=== PATIENT | male | born 1995 | race Caucasian/White ===

== ENCOUNTER 2017-12-15 20:31 | Emergency (ER) | payer OTHER ==
[2017-12-15] MEDS ORDERED: LIDOCAINE 1% MPF 5 ML VIAL ONE (21:29)
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
== END 2017-12-15 23:34 | disposition home or self-care (01) ==
LOC: ER 20:31
PROC: 0CQ0XZZ Repair Upper Lip, External Approach (ICD-10-PCS; principal; 2017-12-15)
DX: S01.511A Laceration without foreign body of lip, initial encounter (principal); Y04.2XXA Assault by strike against or bumped into by another person, initial encounter; Y93.89 Activity, other specified; Y92.9 Unspecified place or not applicable; Z72.0 Tobacco use; Z88.2 Allergy status to sulfonamides; Z88.8 Allergy status to other drugs, medicaments and biological substances
CPT/HCPCS: 70160; 99284